=== PATIENT | female | born 1960 | race Caucasian/White ===

== ENCOUNTER 2023-10-01 14:27 | Outpatient (AMB) | payer OTHER, SELFPAY ==
--- NOTE | 2023-10-01 14:45 | MHC.PC.OV ---
Vital Signs 10/01/23 14:48 Height 5 ft 2 in Weight 165 lb 4 oz BMI 30.2 BP 112/70 Blood Pressure Location Lt brachial Position Sitting Pulse 65 Pulse Source Pulse Oximeter Pulse Oximetry (%) 98 Oxygen Delivery Method Room Air Intake Visit Reasons: Med review/refill Intake Note: Patient is here to follow up on Med review and refill. 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 Technician: Not Required per policy Accompanied by: Self / Same As Patient Allergies Penicillins [PENICILLINS] Allergy (Unknown, Verified 10/01/23 15:47) RASH Sulfa (Sulfonamide Antibiotics) [SULFA (SULFONAMIDE ANTIBIOTICS)] Allergy (Unknown, Verified 10/01/23 15:47) RASH/NASUEA Medication List - Last Reconciled 10/01/23 by Alex Valdes MD loratadine (Allergy Relief (loratadine)) 10 mg PO DAILY multivitamin 1 tab PO DAILY simvastatin 20 mg PO BEDTIME Tobacco use date assessed: 10/01/23 Dental Screening Dental Screen Date: 10/01/23 Did you have a dental visit in the last 12 months?: Yes Did you have a dental problem in the last 6 months where you did not have access to dental care?: No Was dental information given to patient?: Patient has dentist HPI Med review/refill HPI Details 63-year-old female presents to the office to establish her care. She has transferring from a physician outside the [facility]. Chronic medical conditions include hyper cholesterolemia. Patient is on a statin for many years. Last blood work was done 6 months ago. Tolerating the medication and reporting no side effects. Patient is having ongoing dental extraction. She is up-to-date on her mammogram and colonoscopy. Mammogram has been done at [facility]. 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 1. Little interest or pleasure in doing things: not at all 2. Feeling down, depressed, or hopeless: not at all 3. Trouble falling or staying asleep, or sleeping too much: not at all 4. Feeling tired or having little energy: not at all 5. Poor appetite or overeating: not at all 6. Feeling bad about yourself - or that you are a failure or have let yourself or your family down: not at all 7. Trouble concentrating on things, such as reading the newspaper or watching television: not at all 8. Moving or speaking so slowly that other people could have noticed. Or the opposite - being so fidgety or restless that you have been moving around a lot more than usual: not at all 9. Thoughts that you would be better off or of hurting yourself in some way: not at all Total score: 0 Depression Screening Interpretation: Negative Depression Screening Done: Yes Source: Developed by Drs. Chas Mcneill, Lizette Jarquin, Dickson Osullivan and colleagues, with an educational kamila from [employer]. Thrive Questionnaire Date Thrive assessed: 10/01/23 I am a: Patient What is your living situation today?: I have a steady place to live Within the past 12 months, did the food you bought not last and you didn't have the money to get more?: Never true Within the past 12 months, did you worry whether your food would run out before you got money to buy more?: Never true Do you have trouble paying for medicines?: No Do you have trouble getting transportation to medical appointments?: No Do you have trouble paying your heating and electricity bill?: No Do you have trouble taking care of your child, family member or friend?: No Do you have trouble with day-to-day activities such as bathing, preparing meals, shopping, managing finances, etc.?: No Are you currently unemployed and looking for a job?: No Are you interested in more education?: No Currently or been in a relationship where the following occur: no concerns reported THRIVE Score: 0 AUDIT C Alcohol Use Questionnaire (AUDIT-C) 1. How often do you have a drink containing alcohol?: 2-3 times a week 2. How many drinks containing alcohol do you have on a typical day when you are drinking?: 1 or 2 Total Score: 3 CRISTIANO-7 AMB Questionnaire CRISTIANO-7 Date CRISTIANO - 7 assessed: 10/01/23 Feeling nervous, anxious, or on edge: 0 = Not at all Not being able to stop or control worryin = Not at all Worrying too much about different things: 0 = Not at all Trouble relaxin = Not at all Being so restless that it is hard to sit still: 0 = Not at all Becoming easily annoyed or irritable: 0 = Not at all Feeling afraid as if something awful might happen: 0 = Not at all Total CRISTIANO-7 score (0-4 normal; 5-9 mild; 10-14 moderate; 15-21 severe): 0 Source: Developed by Drs. Chas Mcneill, Lizette Jarquin, Dickson Osullivan and colleagues, with an educational kamila from [employer]. Physical exam (Primary Care) Vital Signs: Last Vital Signs Pulse 65 10/01/23 14:48 BP 112/70 10/01/23 14:48 Pulse Ox 98 10/01/23 14:48 Oxygen Delivery Method Room Air 10/01/23 14:48 Care Plan Goal for BP management: Blood pressure is in range. On no medications. BMI result Body Mass Index 30.2 Tobacco/Smoking Status: Tobacco use Status Tobacco use date assessed 10/01/23 10/01/23 14:50 Patient Tobacco Use Status Never used Tobacco 10/01/23 14:58 e-Cigarette/Vaping Use Never Used 10/01/23 14:58 PHQ-9: PHQ-9 Score PHQ-9: Total score 0 10/01/23 14:50 Depression Screening Interpretation: Negative Thrive Assessment: Date of Thrive Assessment Date Thrive assessed 10/01/23 10/01/23 14:50 Currently or been in a relationship where the following occur: no concerns reported Assessment and Plan Assessment & Plan (1) Hypercholesterolemia: Code(s): E78.00 - Pure hypercholesterolemia, unspecified Plan: Blood work has been ordered. Will call with the results. Simvastatin has been ordered. Cost of medications is a barrier. Using [nsulin] many times a day without supervision. Administration of [insulin]. Orders: Orders Basic Metabolic Panel Today E78.00 - Pure hypercholesterolemia, unspecified Complete Blood Count no Diff Today E78.00 - Pure hypercholesterolemia, unspecified Thyroid Stimulating Hormone Today E78.00 - Pure hypercholesterolemia, unspecified UA and rflx microscopic Today E78.00 - Pure hypercholesterolemia, unspecified Lipid Panel Today E78.00 - Pure hypercholesterolemia, unspecified Liver Panel Today E78.00 - Pure hypercholesterolemia, unspecified Medications: New simvastatin 20 mg PO BEDTIME 90 tabs 1RF Coding Level of Care Code New Pt Level 4 (77051) Complex EM visit Add On G2211 Diagnoses Hypercholesterolemia E78.00
[2023-10-01 14:48] VITALS: BP 112/70; PULSE 65; O2SAT 98; BMI 30.2
== END 2023-10-01 15:33 | disposition home or self-care (01) ==
PROVIDERS: PCP Internal Medicine; Visit Provider Internal Medicine
DX: E78.00 Pure hypercholesterolemia, unspecified (principal)
CPT/HCPCS: 99204

== ENCOUNTER 2023-11-21 09:30 | Outpatient (REF) | payer OTHER, SELFPAY ==
[2023-11-21 13:12] LABS: Hematocrit 38.9 % (37.0-47.0); Mean Corpuscular HGB Conc 33.4 g/dl (31.0-35.0); Mean Corpuscular Hemoglobin 31.4 pg (27.0-33.0); Mean Platelet Volume 10.7 fL (9.4-12.3); Platelet Count 302 X10*3/uL (160-400); Red Blood Count 4.14 X10*6/uL (4.20-5.50); Red Cell Distribution Width 12.7 % (11.0-16.0); White Blood Count 5.2 X10*3/uL (4.8-10.8)
[2023-11-21 13:15] LABS: Appearance Urine Clear; Color Urine Yellow; Glucose Urine UA Negative (Negative); Leukocyte Esterase Urine Negative (Negative); Nitrite Urine Negative (Negative); PH 8.5 (5.0-9.0); Urine Blood Negative (Negative); Urine Ketones Negative (Negative); Urine Protein Negative (Neg-Trace)
[2023-11-21 13:34] LABS: Alanine Aminotransferase 14 U/L (0-31); Albumin Level 4.3 g/dL (3.5-5.0); Alkaline Phosphatase 75 U/L (39-117); Anion Gap 13 (12-20); Aspartate Amino Transferase 20 U/L (5-31); Bilirubin Direct 0.3 mg/dL (0.0-0.5); Bilirubin Total 0.9 mg/dL (0.0-1.0); Blood Urea Nitrogen 11 mg/dL (9-16); Calcium 9.8 mg/dL (8.4-10.2); Carbon Dioxide 28 mmol/L (22-29); Chloride 106 mmol/L (96-108); Cholesterol 161 mg/dL (<200); Estimated Glomerular Filt Rate > 60; Glucose Random 92 mg/dL (60-115); HDL Cholesterol 59 mg/dL (>40); LDL Cholesterol Calculated 83 mg/dL (<100); Potassium 4.5 mmol/L (3.3-5.1); Sodium 142 mmol/L (135-145); Total Protein 7.3 g/dL (6.5-8.0); Triglycerides 97 mg/dL (<150)
== END 2023-11-21 09:31 | disposition home or self-care (01) ==
LOC: HO.HMGCLDS 09:30
PROVIDERS: PCP Internal Medicine; Visit Provider Internal Medicine
DX: E78.00 Pure hypercholesterolemia, unspecified (principal)
CPT/HCPCS: 36415; 80048; 80061; 80076; 81003; 84443; 85027

== ENCOUNTER 2023-12-03 09:01 | Outpatient (AMB) | payer OTHER, SELFPAY ==
[2023-12-03 09:09] VITALS: BP 90/62; PULSE 74; O2SAT 98; BMI 30.7
--- NOTE | 2023-12-03 09:09 | MHC.PC.OV ---
Vital Signs 12/03/23 09:09 Height 5 ft 2 in Weight 168 lb 0.6 oz BMI 30.7 BP 90/62 Blood Pressure Location Lt brachial Position Sitting Pulse 74 Pulse Source Pulse Oximeter Pulse Oximetry (%) 98 Oxygen Delivery Method Room Air Intake Visit Reasons: physical high cholesterol Databases Computer Consultant Required: No Allergies Penicillins [PENICILLINS] Allergy (Unknown, Verified 12/03/23 09:34) RASH Sulfa (Sulfonamide Antibiotics) [SULFA (SULFONAMIDE ANTIBIOTICS)] Allergy (Unknown, Verified 12/03/23 09:34) RASH/NASUEA Medication List - Last Reconciled 12/03/23 by Alex Valdes MD loratadine (Allergy Relief (loratadine)) 10 mg PO DAILY multivitamin 1 tab PO DAILY simvastatin 20 mg PO BEDTIME Tobacco use date assessed: 10/01/23 Dental Screening Dental Screen Date: 10/01/23 Did you have a dental visit in the last 12 months?: Yes Did you have a dental problem in the last 6 months where you did not have access to dental care?: No Was dental information given to patient?: Patient has dentist HPI physical high cholesterol HPI Details 63-year-old female presents to the office to discuss her chronic medical conditions. Patient is compliant with statins. Reporting no side effects. Exercises and lifts weights twice a week. Continues to work and able to do all activities of daily living. No symptoms or complaints of urinary incontinence. Able to drive at night. 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 1. Little interest or pleasure in doing things: not at all 2. Feeling down, depressed, or hopeless: not at all 3. Trouble falling or staying asleep, or sleeping too much: not at all 4. Feeling tired or having little energy: not at all 5. Poor appetite or overeating: not at all 6. Feeling bad about yourself - or that you are a failure or have let yourself or your family down: not at all 7. Trouble concentrating on things, such as reading the newspaper or watching television: not at all 8. Moving or speaking so slowly that other people could have noticed. Or the opposite - being so fidgety or restless that you have been moving around a lot more than usual: not at all 9. Thoughts that you would be better off or of hurting yourself in some way: not at all Total score: 0 Depression Screening Interpretation: Negative Depression Screening Done: Yes Source: Developed by Drs. Chas Mcneill, Lizette Jarquin, Dickson Osullivan and colleagues, with an educational kamila from [employer]. Thrive Questionnaire Date Thrive assessed: 11/30/23 I am a: Patient What is your living situation today?: I have a steady place to live Within the past 12 months, did the food you bought not last and you didn't have the money to get more?: Never true Within the past 12 months, did you worry whether your food would run out before you got money to buy more?: Never true Do you have trouble paying for medicines?: No Do you have trouble getting transportation to medical appointments?: No Do you have trouble paying your heating and electricity bill?: No Do you have trouble taking care of your child, family member or friend?: No Do you have trouble with day-to-day activities such as bathing, preparing meals, shopping, managing finances, etc.?: No Are you currently unemployed and looking for a job?: No Are you interested in more education?: I choose not to answer this question Please select the resources that you would like help with: Housing/Residential Currently or been in a relationship where the following occur: No concerns reported THRIVE Score: 0 AUDIT C Alcohol Use Questionnaire (AUDIT-C) 1. How often do you have a drink containing alcohol?: 2-3 times a week 2. How many drinks containing alcohol do you have on a typical day when you are drinking?: 1 or 2 3. How often do you have six or more drinks on one occasion?: Never Total Score: 3 CRISTIANO-7 AMB Questionnaire CRISTIANO-7 Date CRISTIANO - 7 assessed: 10/01/23 Feeling nervous, anxious, or on edge: 0 = Not at all Not being able to stop or control worryin = Not at all Worrying too much about different things: 0 = Not at all Trouble relaxin = Nearly every day Being so restless that it is hard to sit still: 0 = Not at all Becoming easily annoyed or irritable: 3 = Nearly every day Feeling afraid as if something awful might happen: 0 = Not at all Total CRISTIANO-7 score (0-4 normal; 5-9 mild; 10-14 moderate; 15-21 severe): 6 Source: Developed by Drs. Chas Mcneill, Lizette Jarquin, Dickson Osullivan and colleagues, with an educational kamila from [employer]. CRISTIANO-7 Assessment Billing CRISTIANO-7 Assessment Tool: CRISTIANO-7 Assessment 32666 Physical exam (Primary Care) Vital Signs: Last Vital Signs Pulse 74 12/03/23 09:09 BP 90/62 12/03/23 09:09 Pulse Ox 98 12/03/23 09:09 Oxygen Delivery Method Room Air 12/03/23 09:09 Care Plan Goal for BP management: Blood pressure is in range. BMI result Body Mass Index 30.7 Tobacco/Smoking Status: Tobacco use Status Tobacco use date assessed 10/01/23 12/03/23 09:11 Patient Tobacco Use Status Never used Tobacco 12/03/23 09:11 e-Cigarette/Vaping Use Never Used 12/03/23 09:11 PHQ-9: PHQ-9 Score PHQ-9: Total score 0 12/03/23 09:15 Depression Screening Interpretation: Negative Thrive Assessment: Date of Thrive Assessment Date Thrive assessed 11/30/23 12/03/23 09:11 Currently or been in a relationship where the following occur: No concerns reported Date of discussion: 12/03/23 Who was present: Patient Forms completed: Health Care Proxy and MOLST Actual minutes spent: 5 Const General: cooperative and healthy appearing Nutritional Appearance: well nourished Orientation/consciousness: patient oriented x3 Limitations: no limitations HENMT Head: Yes normal to inspection Eyes General: appearance normal, both eyes and all related structures Neck Neck: Yes normal visual inspection Chest Chest palpation & inspection: normal palpation of entire chest wall Resp Effort & Inspection: normal respiratory effort Neuro General: patient oriented x3 Assessment and Plan Assessment & Plan (1) Hypercholesterolemia: Code(s): E78.00 - Pure hypercholesterolemia, unspecified Plan: Blood work reviewed with patient. LDL is in range. Continue simvastatin at same dosage. Patient has an upcoming mammogram ordered in December. Encouraged her to keep the appointment. Coding Level of Care Code Est Pt Level 4 (95430) Complex EM visit Add On G2211 Diagnoses Hypercholesterolemia E78.00 Additional Codes CRISTIANO-7 Assessment Billing - CRISTIANO-7 Assessment Tool: CRISTIANO-7 Assessment 60750 ([id number])
== END 2023-12-03 09:33 | disposition home or self-care (01) ==
PROVIDERS: PCP Internal Medicine; Visit Provider Internal Medicine
DX: E78.00 Pure hypercholesterolemia, unspecified (principal)
CPT/HCPCS: 99214

== ENCOUNTER 2024-11-27 09:43 | Outpatient (REF) | payer OTHER, SELFPAY ==
--- OUTSIDE RECORDS SUMMARY | 2024-11-27 09:45 | XMS_ITS | Patient Health Record ---
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 Role Phone Se Schwab MD Primary Care Provider Case Vuong Jr Unavailable [phone] Allergies Allergen (clinical drug ingredient) Drug/Non Drug Allergy documented on EMR Reaction Allergy Type Onset Date Status Sulfa Unknown Drug Allergy Active Penicillin Unknown Drug Allergy Active oxycodone Oxycodone HCl Unknown Drug Allergy Act tracie Pollen pollen (uncoded) Unknown Allergy Act tracie Reason For Referral No Information Medications Medication SIG (Take, Route, Frequency, Duration) Notes Start Date End Date Status Vitamin C Active Zofran 4 MG 1 tablet Orally Ever y 8 hours as needed for nausea 10/11/2015 Active Calcium Active Colyte with Flavor Packs 240 GM As directed Orally Over the specified time. for 1 day(s) 10/11/2015 Active Multivitamin Active Simvastatin Active Loratadine Active Probiotic Active Lutein Active Magnesium Active Problems Problem Type SNOMED Code ICD Code Onset Dates Problem Status W/U Status Risk Notes Problem 667313789 Colon cancer screening (Z12.11) Active confirmed Problem 827334222 Irritable bowel syndrome with diarrhea (K58.0) Active confirmed Plan Of Treatment Future Test Test Name Order Date COLONOSCOPY 10/11/2015 Insurance Providers Payer Name Payer Address Payer Phone Subscriber Number Group Number Insured Name Patient Relationship to Insured Coverage Start Date Coverage End Date [facility] [address] [place] [address] [phone] [id number] HUYEN MEYER Self - patient is the insured Medical (General) History Medical History History ICD Code Denies [place],DM,CVA,Lung disease,renal dise ase hypercholesterolemia Surgical History Surgery Date(Month/Year) tonsillectomy
[2024-11-27 11:16] LABS: Appearance Urine Clear; Glucose Urine UA Negative (Negative); Hematocrit 37.0 % (37.0-47.0); Hemoglobin 12.6 g/dl (12.0-16.0); Mean Corpuscular HGB Conc 34.1 g/dl (31.0-35.0); Mean Corpuscular Hemoglobin 31.6 pg (27.0-33.0); Mean Corpuscular Volume 92.7 fL (80.0-98.0); NRBC Abs Auto 0.000 X10*3/uL (0.0-0.012); NRBC Pct Auto 0.0 /100WBC (0.0-0.2); PH 6.5 (5.0-9.0); Platelet Count 285 X10*3/uL (160-400); Red Blood Count 3.99 X10*6/uL (4.20-5.50); Specific Gravity - Urine 1.015 (1.005-1.025); White Blood Count 5.9 X10*3/uL (4.8-10.8)
[2024-11-27 12:19] LABS: Alanine Aminotransferase 15 U/L (0-31); Albumin Level 4.4 g/dL (3.5-5.0); Alkaline Phosphatase 79 U/L (39-117); Anion Gap 12 (12-20); Aspartate Amino Transferase 23 U/L (5-31); Blood Urea Nitrogen 14 mg/dL (9-16); Calcium 8.9 mg/dL (8.4-10.2); Carbon Dioxide 26 mmol/L (22-29); Chloride 109 mmol/L (96-108); Cholesterol 160 mg/dL (<200); Estimated Glomerular Filt Rate > 60; HDL Cholesterol 48 mg/dL (>40); Potassium 4.0 mmol/L (3.3-5.1); Sodium 143 mmol/L (135-145); Total Protein 7.2 g/dL (6.5-8.0); Triglycerides 135 mg/dL (<150)
[2024-11-27 12:34] LABS: Thyroid Stimulating Hormone 2.38 uIU/mL (0.32-4.0)
== END 2024-11-27 09:44 | disposition home or self-care (01) ==
LOC: HO.HMGCLDS 09:43
PROVIDERS: PCP Internal Medicine; Visit Provider Internal Medicine
DX: E78.00 Pure hypercholesterolemia, unspecified (principal)
CPT/HCPCS: 36415; 80048; 80061; 80076; 81003; 84443; 85027

== ENCOUNTER 2025-02-16 07:50 | Outpatient (AMB) | payer OTHER, SELFPAY ==
--- OUTSIDE RECORDS SUMMARY | 2025-02-16 07:54 | XMS_ITS | Patient Health Record ---
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 Role Phone Se Schwab MD Primary Care Provider Case Vuong Jr Unavailable Allergies Allergen (clinical drug ingredient) Drug/Non Drug [...] GM As directed Orally Over the specified time.; Duration: 1 day(s) 10/11/2015 Active Multivitamin Active Simvastatin Active Loratadine Active Probiotic Active Lutein Active Magnesium Active Problems Problem Type SNOMED Code ICD Code Onset Dates Problem Status W/U Status Risk Notes Problem Colon cancer screening (996588350) Colon cancer screening (Z12.11) Active confirmed Problem Irritable bowel syndrome with diarrhea (067090507) Irritable bowel syndrome with diarrhea (K58.0) Active confirmed Plan Of Treatment Future Test Test Name Order Date COLONOSCOPY 10/11/2015 Insurance Providers Payer Name Payer Address Payer Phone Subscriber Number Group Number Insured Name Patient Relationship to Insured Coverage Start Date Coverage End Date [facility] [address] [place] [address] [id number] HUYEN MEYER Self - patient is the insured Medical (General) History Medical History History ICD Code Denies [place],DM,CVA,Lung disease,renal dise ase hypercholesterolemia Surgical History Surgery Date(Month/Year) tonsillectomy
--- NOTE | 2025-02-16 08:10 | MHC.PC.OV ---
Vital Signs 02/16/25 08:11 Height 5 ft 2 in Weight 170 lb 8 oz BMI 31.2 BP 130/62 Blood Pressure Location Lt brachial Position Sitting Pulse 76 Pulse Source Pulse Oximeter Temp 96.6 F L Temp Source Temporal Artery Scan Pulse Oximetry (%) 97 Oxygen Delivery Method Room Air Intake Visit Reasons: Annual Exam Intake Note: Patient is here today for a physical. 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: Not Required per policy Accompanied by: Self / Same As Patient Allergies Penicillins (PENICILLINS) Allergy (Unknown, Verified 02/16/25 08:11) RASH Sulfa (Sulfonamide Antibiotics) (SULFA (SULFONAMIDE ANTIBIOTICS)) Allergy (Unknown, Verified 02/16/25 08:11) RASH/NASUEA Tobacco use date assessed: 02/16/25 Dental Screening Dental Screen Date: 02/16/25 Did you have a dental visit in the last 12 months?: Yes Did you have a dental problem in the last 6 months where you did not have access to dental care?: No Was dental information given to patient?: Patient has dentist [facility] Medical History Hypercholesterolemia Surgical History History of tonsillectomy History of dental surgery Family History Other Mental health disorder Social History Housing: House Alcohol intake: current Alcohol intake frequency: a few times a week Patient Tobacco Use Status: Never used Tobacco e-Cigarette/Vaping Use: Never Used Second Hand Smoke Exposure: No service: No Current occupational status: employed 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 1. Little interest or pleasure in doing things: several days 2. Feeling down, depressed, or hopeless: several days 3. Trouble falling or staying asleep, or sleeping too much: nearly every day 4. Feeling tired or having little energy: more than half the days 5. Poor appetite or overeating: not at all 6. Feeling bad about yourself - or that you are a failure or have let yourself or your family down: not at all 7. Trouble concentrating on things, such as reading the newspaper or watching television: not at all 8. Moving or speaking so slowly that other people could have noticed. Or the opposite - being so fidgety or restless that you have been moving around a lot more than usual: not at all 9. Thoughts that you would be better off or of hurting yourself in some way: not at all Total score: 7 Depression Screening Interpretation: Positive Depression Screening Done: Yes Source: Developed by Drs. Chas Mcneill, Lizette Jarquin, Dickson Osullivan and colleagues, with an educational kamila from [employer]. Thrive Questionnaire Date Thrive assessed: 12/24/24 I am a: Patient What is your living situation today?: I have a steady place to live Within the past 12 months, did the food you bought not last and you didn't have the money to get more?: Never true Within the past 12 months, did you worry whether your food would run out before you got money to buy more?: Never true Do you have trouble paying for medicines?: No Do you have trouble getting transportation to medical appointments?: No Do you have trouble paying your heating and electricity bill?: No Do you have trouble taking care of your child, family member or friend?: No Do you have trouble with day-to-day activities such as bathing, preparing meals, shopping, managing finances, etc.?: No Are you currently unemployed and looking for a job?: No Are you interested in more education?: No Please select the resources that you would like help with: None Currently or been in a relationship where the following occur: No concerns reported THRIVE Score: 0 AUDIT C Alcohol Use Questionnaire (AUDIT-C) 1. How often do you have a drink containing alcohol?: 2-3 times a week 2. How many drinks containing alcohol do you have on a typical day when you are drinking?: 1 or 2 Total Score: 3 CRISTIANO-7 AMB Questionnaire CRISTIANO-7 Date CRISTIANO - 7 assessed: 02/16/25 Feeling nervous, anxious, or on edge: 0 = Not at all Not being able to stop or control worryin = Not at all Worrying too much about different things: 0 = Not at all Trouble relaxin = Not at all Being so restless that it is hard to sit still: 0 = Not at all Becoming easily annoyed or irritable: 0 = Not at all Feeling afraid as if something awful might happen: 0 = Not at all Total CRISTIANO-7 score (0-4 normal; 5-9 mild; 10-14 moderate; 15-21 severe): 0 Source: Developed by Drs. Chas Mcneill, Lizette Jarquin, Dickson Osullivan and colleagues, with an educational kamila from [employer]. Physical exam (Primary Care) Vital Signs: Last Vital Signs Temp 96.6 F L 02/16/25 08:11 Pulse 76 02/16/25 08:11 BP 130/62 02/16/25 08:11 Pulse Ox 97 02/16/25 08:11 Oxygen Delivery Method Room Air 02/16/25 08:11 BMI result Body Mass Index 31.2 Tobacco/Smoking Status: Tobacco use Status Tobacco use date assessed 02/16/25 02/16/25 08:16 Patient Tobacco Use Status Never used Tobacco 02/16/25 08:16 e-Cigarette/Vaping Use Never Used 02/16/25 08:16 PHQ-9: PHQ-9 Score PHQ-9: Total score 7 02/16/25 08:16 Depression Screening Interpretation: Positive Thrive Assessment: Date of Thrive Assessment Date Thrive assessed 12/24/24 02/16/25 08:16 Currently or been in a relationship where the following occur: No concerns reported Coding Level of Care Code Est Pt Prev Care 40-64y(75267) Diagnoses Hypercholesterolemia E78.00 Annual physical exam Z00.00 Assessment & Plan Assessment & Plan (1) Hypercholesterolemia: Code(s): E78.00 - Pure hypercholesterolemia, unspecified Category: Medical Plan: LDL in range. Continue statin at same dosage. BW revd. (2) Annual physical exam: Code(s): Z00.00 - Encounter for general adult medical examination without abnormal findings Plan: History of Present Illness - The patient is a 64-year-old female presenting for an annual physical examination and preventative care. - Eczema: The patient reports a history of eczema with a rash on her elbows and eyelids, accompanied by general itchiness. - Eczema: She consulted a special procedure technologist who conducted patch testing for 80 chemicals, which returned negative results. - Eczema: The special procedure technologist prescribed ointments that provide temporary relief, but the condition recurs intermittently. - Tendinitis: The patient experiences tendinitis in her elbows, which flares up occasionally without specific aggravating activities. - Tendinitis: She is aware of the need to avoid overexertion, such as trimming hedges in one day, to prevent exacerbation. - Stress-related headaches: The patient reports daily headaches attributed to high stress levels and poor sleep quality. - Preventative care: The patient plans to receive a COVID vaccine next month and recently received a flu shot. - Preventative care: She inquires about a bone density test, noting it has been about 10 years since her baseline test. - Preventative care: The patient had a mammogram last month, which returned normal results. - Preventative care: She expresses reluctance to undergo another colonoscopy due to a previous adverse experience and opts for a Cologuard test instead. Social History - Employment: The patient works for [employer], and reports a high level of stress related to her job responsibilities. - Exercise: The patient exercises regularly and follows a low-carbohydrate diet, although she struggles with weight management. Review of Systems - Dermatological: Reports eczema with rash and itchiness on elbows and eyelids. - Musculoskeletal: Reports tendinitis in elbows, exacerbated by overexertion. - Neurological: Reports daily headaches due to stress and poor sleep quality. - General: Denies pain, reports stress-related symptoms. Physical Exam General: Cooperative and healthy appearing Nutritional Appearance: Well nourished Orientation/consciousness: Patient oriented x3 Limitations: No limitations Head: Normal to inspection General: Appearance normal, both eyes and all related structures Neck: Normal visual inspection Chest: Normal palpation of entire chest wall Respiratory: N ormal respiratory effort Neurology: Patient oriented x3, reports daily headaches due to stress, and tendinitis in elbows noted. Results - Labs: Recent blood work showed normal cholesterol levels. - Imaging: Mammogram conducted last month was normal. Plan - Eczema: Continue using prescribed ointments for intermittent relief. - Tendinitis: Avoid overexertion to prevent exacerbation of symptoms. - Stress-related headaches: Address stress management and improve sleep quality. - Preventative care: Order bone density test due to 10-year interval since baseline. - Preventative care: Order Cologuard test as an alternative to colonoscopy. - Preventative care: Follow up on mammogram report and ensure results are received. Discussion Notes During the visit, I discussed the management of eczema with the patient, emphasizing the use of prescribed ointments for symptom relief. We also talked about the importance of avoiding overexertion to manage tendinitis symptoms. I advised on stress management techniques to help alleviate her stress-related headaches. For preventative care, I recommended a bone density test due to the 10-year interval since her last test and suggested a Cologuard test as an alternative to colonoscopy. I assured her that the mammogram results would be followed up to ensure they are received. Patient Instructions - Continue using prescribed ointments for eczema as needed. - Avoid activities that may exacerbate tendinitis. - Practice stress management techniques to reduce headaches. - Schedule a bone density test. - Complete the Cologuard test as instructed. - Follow up on mammogram results to ensure they are received. Medications: Refilled simvastatin 20 mg PO BEDTIME 90 tabs 5RF
[2025-02-16 08:11] VITALS: BP 130/62; PULSE 76; TEMP 35.9; O2SAT 97; BMI 31.2
== END 2025-02-16 08:40 | disposition home or self-care (01) ==
LOC: HO.HMCH 07:51
PROVIDERS: PCP Internal Medicine; Visit Provider Internal Medicine
DX: Z00.00 Encounter for general adult medical examination without abnormal findings (principal); E78.00 Pure hypercholesterolemia, unspecified

== ENCOUNTER 2025-04-20 07:59 | Outpatient (REF) | payer OTHER, SELFPAY ==
--- NOTE | ~2025-04-20 | MM_ITS ---
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 COMPARISON: There are no prior studies for comparison. FINDINGS: The bone mineral density of the lumbar spine is 1.054 g/cm2, corresponding to a T-score of -1.0, and a Z-score of 0.0. This is indicative of normal bone mineral density. The bone mineral density of the left total hip is 0.871 g/cm2, corresponding to a T-score of -1.1, and a Z-score of -0.3. This is indicative of osteopenia. The bone mineral density of the left femoral neck is 0.881 g/cm2, corresponding to a T-score of -1.1, and a Z-score of 0.0. This is indicative of osteopenia. FRACTURE RISK: The FRAX index suggests a risk of major osteoporotic fracture of 15.1%, and of hip fracture 0.5%. MM/XR DEXA axial skeleton IMPRESSION: Based on bone mineral density, and according to World Health Organization (WHO) criteria, the diagnosis is consistent with osteopenia. Statistically, 68% of repeat scans fall within 1 SD (+/- 0.010 g/cm2 for AP spine L1-L4) and 1 SD (+/- 0.012 g/cm2 for femur total) FRAX is a trademark of the [employer] [place] for Metabolic Bone Disease, a World Health Organization (WHO) Collaborating Center. Electronically signed by: Chas Guerra MD 04/20/2025 08:47 AM [facility]
--- OUTSIDE RECORDS SUMMARY | 2025-04-20 08:03 | XMS_ITS | Patient Health Record ---
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 Name Role Phone Se Schwab MD Primary Care Provider Case Vuong Jr Unavailable [phone] Allergies Allergen (clinical drug ingredient) Drug/Non Drug Allergy documented on EMR Reaction Allergy Type Onset Date Status Pollen pollen (uncoded) Unknown Allergy Act tracie oxycodone Oxycodone HCl Unknown Drug Allergy Act tracie Penicillin Unknown Drug Allergy Active Sulfa Unknown Drug Allergy Active Reason For Referral No Information Medications Medication SIG (Take, Route, Frequency, Duration) Notes Start Date End Date Status Vitamin C Active Zofran 4 MG Tablet 1 tablet Orally Ever y 8 hours as needed for nausea 10/11/2015 Active Calcium Active Colyte with Flavor Packs 240 GM Solution Reconstituted As directed Orally Over the specified time.; Duration: 1 day(s) 10/11/2015 Active Multivitamin Active Simvastatin Active Loratadine Active Probiotic Active Lutein Active Magnesium Active Social History Social History Additional Details Category Social Info Options Details Miscellaneous: Marital status: single 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 [address] [place] [address] [id number] HUYEN MEYER Self - patient is the insured Medical (General) History Medical History History ICD Code Denies ME,DM,CVA,Lung disease,renal dise ase hypercholesterolemia Surgical History Surgery Date(Month/Year) tonsillectomy
== END 2025-04-20 08:00 | disposition home or self-care (01) ==
LOC: HO.MAMMO 07:59
PROVIDERS: PCP Internal Medicine; Visit Provider Internal Medicine
DX: M81.0 Age-related osteoporosis without current pathological fracture (principal)
CPT/HCPCS: 77080

== ENCOUNTER → 2025-04-20 08:15 | Outpatient (BNV) | payer OTHER, SELFPAY | PROVIDERS: PCP Internal Medicine; Visit Provider Radiology Diagnostic Radiology | DX: E28.39 Other primary ovarian failure (principal) | CPT/HCPCS: 77080 ==